=== PATIENT | male | born 2000 | race Caucasian/White ===

== ENCOUNTER 2023-07-30 17:24 | Emergency (ER) | payer OTHER, SELFPAY ==
[2023-07-30 17:28] VITALS: BP 114/78; PULSE 81; RESP 16; TEMP 36.7; O2SAT 96; BMI 38.0
--- NOTE | 2023-07-30 17:32 | XR_ITS ---
[place] [id number] Patient Name: GINO MASON MRN: [id number] date: 2000 Sex: M Assigned Patient Location: ER Current Patient Location: ER Accession/Order Number: [id number] Exam Date: 07/30/2023 18:00 Report Date: 07/30/2023 18:29 At the request of: SUNITA HYLTON Procedure: XR elbow LT min 3V EXAM: XR elbow LT min 3V HISTORY: Pain after fall COMPARISON: None. TECHNIQUE: 4 views FINDINGS: No osseous lesion, fracture, dislocation or subluxation. Joint spaces are normal. No visualized effusion. No visualized soft tissue edema. XR/XR elbow LT min 3V IMPRESSION: Normal x-rays Electronically authenticated by: TWNA NUNEZ Date: 07/30/2023 18:29
--- NOTE | 2023-07-30 17:47 | ED.UPPEXIN1 ---
HPI - Extremity Injury (Upper) General Chief Complaint: Extremity Injury, Upper Stated Complaint: UPPER INJURY Time Seen by Provider: 07/30/23 17:40 Source: patient Mode of arrival: walk-in Limitations: no limitations History of Present Illness HPI narrative: 23-year-old male presents for left elbow pain. He slipped on ice and fell and landed on his left arm. He didn't hit his head. He has no pain in his left leg. No chest pain or shortness of breath. It hurts from the mid admitted warm area. The pain is worse if he tries to move it and is moderate to severe. Related Data Previous Rx's Medication Instructions Recorded ibuprofen 800 mg tablet 800 mg PO Q8H PRN pain #20 tabs 07/30/23 Allergies Allergy/AdvReac Type Severity Reaction Status Date / Time No Known Drug Allergies Allergy Verified 07/30/23 17:31 Review of Systems ROS Narrative A ten point review of systems is negative except as noted above. PFSH PFSH Social History Smoking status: Current every day smoker Exam Narrative Exam Narrative: Nurses note and vital signs reviewed and patient is not hypoxic. General: The patient appears uncomfortable. Skin: Warm, dry, no pallor noted. There is no rash noted. Head: Normocephalic, atraumatic Eye: Normal conjunctiva, no drainage Ears, Nose, Mouth, and Throat: oral mucosa is moist. Nares patent. Cardiovascular: Regular Rate and Rhythm Respiratory: Patient is in no distress, no accessory muscle use, lungs are clear to auscultation, no wheezing, rales or rhonchi Back: non-tender GI: soft and nontender Musculoskeletal: the left shoulder is nontender. The left wrist is nontender. Radial pulse 2+ and fingers have good range of motion. He is reluctant to flex his left elbow and is holding his arm up at the forearm. He was no break in the skin. Neurological: A&O, normal speech Psychiatric: Cooperative Constitutional Vital Signs, click to edit/add: Last Vital Signs Temp 98.0 F 07/30/23 17:28 Pulse 81 07/30/23 17:28 Resp 16 07/30/23 17:28 BP 114/78 07/30/23 17:28 Pulse Ox 96 07/30/23 17:28 O2 Del Method Room Air 07/30/23 17:28 Course Vital Signs Vital signs: Vital Signs Temperature 98.0 F 07/30/23 17:28 Pulse Rate 81 07/30/23 17:28 Respiratory Rate 16 07/30/23 17:28 Blood Pressure 114/78 07/30/23 17:28 Pulse Oximetry 96 07/30/23 17:28 Oxygen Delivery Method Room Air 07/30/23 17:28 Temperature 98.0 F 07/30/23 17:28 Pulse Rate 81 07/30/23 17:28 Respiratory Rate 16 07/30/23 17:28 Blood Pressure 114/78 07/30/23 17:28 Pulse Oximetry 96 07/30/23 17:28 Oxygen Delivery Method Room Air 07/30/23 17:28 MDM - Extremity Injury (Upper) MDM Narrative Medical decision making narrative: x-rays per radiologist showed no acute findings. Sling applied, application checked by me and found to be appropriate, he is neurovascularly intact. Treatment diagnosis and follow-up were discussed with the patient. Differential Diagnosis Differential diagnosis: Likely other (elbow fracture, elbow contusion, elbow dislocation) Imaging Data left elbow: Radiologist's impression: Procedure: XR elbow LT min 3V EXAM: XR elbow LT min 3V HISTORY: Pain after fall COMPARISON: None. TECHNIQUE: 4 views FINDINGS: No osseous lesion, fracture, dislocation or subluxation. Joint spaces are normal. No visualized effusion. No visualized soft tissue edema. IMPRESSION: Normal x-rays Electronically authenticated by: TWAN NUNEZ Date: 07/30/2023 18:29 Discharge Plan Discharge Chief Complaint: Extremity Injury, Upper Clinical Impression: Contusion of left elbow Patient Disposition: Home, Self-Care Time of Disposition Decision: 18:41 Condition: Good Mode of Transportation: Private Vehicle Prescriptions / Home Meds: New ibuprofen 800 mg tablet 800 mg PO Q8H PRN (Reason: pain) Qty: 20 0RF Instructions: Contusion in Adults (ED) Additional Instructions: follow-up with Dr. Gregory Stand Alone Forms: Portal Instructions Referrals: Physician,Non-Staff, MD [Primary Care Provider] - 1 week
[2023-07-30] MEDS: IBUPROFEN 400 MG TABLET 800 MG PO (18:54)
== END 2023-07-30 19:10 | disposition home or self-care (01) ==
PROVIDERS: Emergency Provider Emergency Medicine
DX: S50.02XA Contusion of left elbow, initial encounter (principal); W00.0XXA Fall on same level due to ice and snow, initial encounter; F17.210 Nicotine dependence, cigarettes, uncomplicated
CPT/HCPCS: 73080; 99283